=== PATIENT | female | born 1980 | race Caucasian/White ===

== ENCOUNTER 2016-09-25 18:20 | Emergency (ER) | payer OTHER | END 2016-09-25 19:30 | disposition home or self-care (01) | LOC: ER1 18:20 | DX: L03.113 Cellulitis of right upper limb (principal); F32.9 Major depressive disorder, single episode, unspecified; F41.9 Anxiety disorder, unspecified; F17.210 Nicotine dependence, cigarettes, uncomplicated; Z79.899 Other long term (current) drug therapy | CPT/HCPCS: 99283 ==

== ENCOUNTER 2016-11-30 14:13 | Emergency (ER) | payer OTHER ==
[2016-11-30 16:31] LABS: HEMOGLOBIN 13.3 gm/dl (12.3-15.3); RED BLOOD COUNT 4.38 M/UL (4.00-5.10); WHITE BLOOD COUNT 7.1 K/UL (4.5-11.0)
[2016-11-30 16:34] LABS: BUN/CREATININE RATIO 22 (0-10)
== END 2016-11-30 23:02 ==
LOC: ER1 14:13
PROVIDERS: Student in an Organized Health Care Education/Training Program
DX: F29 Unspecified psychosis not due to a substance or known physiological condition (principal); F17.210 Nicotine dependence, cigarettes, uncomplicated; F31.9 Bipolar disorder, unspecified; N39.0 Urinary tract infection, site not specified
CPT/HCPCS: 36415; 80053; 80307; 81001; 83735; 84703; 85025; 99285; G0480

== ENCOUNTER 2020-08-29 20:27 | Emergency (ER) | payer OTHER ==
[2020-08-29] MEDS ORDERED: NEOSPORIN OINT15 GM OU (21:27)
[2020-08-29] MEDS ORDERED: AUGMENTIN 875-1 EACH PO (21:27)
== END 2020-08-29 21:53 | disposition home or self-care (01) ==
LOC: ER1 20:27
DX: S01.551A Open bite of lip, initial encounter (principal); F17.210 Nicotine dependence, cigarettes, uncomplicated; Z23 Encounter for immunization; Z90.49 Acquired absence of other specified parts of digestive tract; Z79.899 Other long term (current) drug therapy; W54.0XXA Bitten by dog, initial encounter; Y92.009 Unspecified place in unspecified non-institutional (private) residence as the place of occurrence of the external cause
CPT/HCPCS: 90471; 90715; 99283

== ENCOUNTER 2021-12-23 16:07 | Emergency (ER) | payer OTHER ==
[~2021-12-23 16:07] MED LIST: AUGMENTIN 875-1 EACH PO; NEOSPORIN OINT15 GM OU
[2021-12-23] MEDS ORDERED: BACTROBAN OINT22 GM TOP (19:14)
[2021-12-23] MEDS ORDERED: MONODOX100 MG PO (19:14)
== END 2021-12-23 19:17 | disposition home or self-care (01) ==
LOC: ER1 16:07
DX: L03.317 Cellulitis of buttock (principal); L03.211 Cellulitis of face; F17.210 Nicotine dependence, cigarettes, uncomplicated; Z88.5 Allergy status to narcotic agent; Z88.6 Allergy status to analgesic agent
CPT/HCPCS: 99282

== ENCOUNTER → 2022-02-10 | Outpatient (CLI) | payer OTHER ==
[~2022-02-10] MED LIST changes: +BACTROBAN OINT22 GM TOP; +MONODOX100 MG PO
== END ==
LOC: MAMO 12-16 08:00
DX: M54.50 Low back pain, unspecified (principal); M25.561 Pain in right knee; M25.552 Pain in left hip; E66.9 Obesity, unspecified; L98.9 Disorder of the skin and subcutaneous tissue, unspecified
CPT/HCPCS: 72100; 73502; 73562